=== PATIENT | male | born 1950 | race African-American/Black ===

== ENCOUNTER 2020-07-22 07:44 | Outpatient (REF) | payer MEDICARE, SELFPAY ==
--- NOTE | 2020-07-22 | US_ITS ---
EXAMINATION: US THYROID CLINICAL INFORMATION: MNT. COMPARISON: Ultrasound soft tissue head/neck thyroid dated 03/20/2019. TECHNIQUE: Linear transducer dimas-scale and color Doppler examination with attention to the region of the thyroid. FINDINGS: SIZE: Measurements of the thyroid lobes and nodules are given in sagittal, anteroposterior and transverse dimensions respectively. Right Thyroid Lobe: 4.7 x 1.8 x 1.4 cm, volume 6.0 mL. Previously 4.3 x 2.3 x 1.3 cm, volume 6.8 mL. Parenchyma: The gland echotexture is homogeneous. Thyroid vascularity is normal. Left Thyroid Lobe: 7.2 x 3.0 x 1.6 cm, volume 17.8 mL. Previously 4.0 x 1.9 x 1.6 cm, volume 6.4 mL. Parenchyma: The gland echotexture is homogeneous. Thyroid vascularity is normal. Isthmus: 0.4 cm in maximum AP dimension. Previously 0.4 cm. RIGHT THYROID LOBE: There is 1 nodule seen. 1. Location: Middle. Size: 0.9 x 0.7 x 0.9 cm. Previous: 0.7 x 1.0 x 0.9 cm. Nodule characteristics: Hyperechoic with smooth margins. No internal calcification. Mild intranodular flow.. ISTHMUS: No nodules. LEFT THYROID LOBE: There is 1 nodule seen. 1. Location: Inferior. Size: 4.2 x 3.1 x 2.3 cm. Previous: 3.8 x 3.1 x 1.8 cm. Nodule characteristics: Heterogeneously isoechoic with smooth margins. No internal calcification or intranodular flow.. NODES: No lymphadenopathy is seen in the tissue surrounding the thyroid gland. IMPRESSION: Unchanged subcentimeter right thyroid lobe nodule. The dominant left thyroid lobe nodule which has been previously biopsied is without significant change.
== END 2020-07-22 07:45 | disposition home or self-care (01) ==
LOC: HO.US 07:44
PROVIDERS: Visit Provider Internal Medicine
DX: E04.2 Nontoxic multinodular goiter (principal)
CPT/HCPCS: 76536

== ENCOUNTER 2020-10-28 08:41 | Outpatient (REF) | payer MEDICARE, SELFPAY ==
--- NOTE | 2020-10-28 09:27 | PM.OP ---
Brief Operative Note Date of Service: 10/28/20 Surgeon: Ophelia Vital, DO This is doctor Ophelia Vital. This is an ultrasound-guided fine-needle aspiration report. Patient name: Mark Matthews : 1950 Date of Examination:10/28/2020 Indication: Multinodular Thyroid Porcedure: Procedure was explained to the patient. Alternatives, the risk and benefits were discussed. Written consent was obtained. A time-out was also obtained. After sterile preparation, fine-needle aspiration of a left lower pole 4.2 cm thyroid nodule was performed using direct ultrasound guidance to confirm accurate needle placement. One aspiration was made using a 27 gauge needle. An additional 5 aspirations were made using 25 guage needles. Samples were submitted for cytology. 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 The patient tolerated the procedure well. Aftercare instructions were provided. Impression: Uncomplicated fine needle aspiration biopsy of a left lower pole 4.2 cm thyroid nodule under ultrasound guidance. Estimated blood loss (mL): 0
[2020-10-28] MEDS: Lidocaine HCl 1 % MPF 5 ML VIAL SUBCUT (12:07)
== END 2020-10-28 08:42 | disposition home or self-care (01) ==
LOC: HO.US 08:41
PROVIDERS: Visit Provider Internal Medicine
DX: E04.2 Nontoxic multinodular goiter (principal)
CPT/HCPCS: 10005; 88172; 88173; 88177

== ENCOUNTER → 2020-11-11 10:21 | Outpatient (BNVA) | payer MEDICARE, SELFPAY | PROVIDERS: PCP Internal Medicine; Visit Provider Internal Medicine | DX: Z13.89 Encounter for screening for other disorder (principal) | CPT/HCPCS: Q3014 ==

== ENCOUNTER 2022-07-26 12:00 | Outpatient (REF) | payer MEDICARE, SELFPAY ==
--- NOTE | ~2022-07-26 | US_ITS ---
EXAMINATION: US THYROID CLINICAL INFORMATION: Nontoxic multinodular goiter. COMPARISON: Ultrasound thyroid 07/22/2020 and 03/20/2019. US-guided thyroid biopsy 08/28/2019. TECHNIQUE: Linear and curved transducer grayscale and color Doppler examination with attention to the region of the thyroid. FINDINGS: SIZE: Measurements of the thyroid lobes and nodules are given in sagittal, anteroposterior and transverse dimensions respectively. Right Thyroid Lobe: 4.3 x 1.8 x 1.2 cm, volume 4.9 mL. Previously 4.7 x 1.8 x 1.4 cm, volume 6.0 mL. Parenchyma: The gland echotexture is homogeneous. Thyroid vascularity is normal. Left Thyroid Lobe: 7.0 x 3.2 x 2.1 cm, volume 24.6 mL. Previously 7.2 x 3.0 x 1.6 cm, volume 17.8 mL. Parenchyma: The gland echotexture is heterogeneous. Thyroid vascularity is normal. Isthmus: 0.5 cm in maximum AP dimension. Previously 0.4 cm. Estimated total number of nodules greater than or equal to 1 cm: 2. Cyanide Case Hardener nodules are described as follows: 1. Location: Right mid. Size: 1.1 x 0.7 x 0.8 cm, volume 0.3 mL. Previously: 0.9 x 0.7 x 0.9 cm, volume 0.3 mL. Nodule characteristics: Composition: Solid (2). Echogenicity: Hyperechoic (1). Shape: Not taller than wide (0). Margins: Smooth (0). Echogenic Foci: None (0). ACR TI-RADS total points: 3 ACR TI-RADS category: 3 Significant change in size (>/= 20% in 2 dimensions and minimal increase of 2 mm or 50% or greater increase in volume): Change in features: Change in ACR TI-RADS risk category: 2. Location: Left mid/inferior. Size: 4.3 x 2.2 x 3.4 cm, volume 16.8 mL. Previously: 4.2 x 3.1 x 2.3 cm, volume 15.7 mL. Nodule characteristics: Composition: Solid (2). Echogenicity: Isoechoic (1). Shape: Not taller than wide (0). Margins: Smooth (0). Echogenic Foci: None (0). ACR TI-RADS total points: 3 ACR TI-RADS category: 3 Significant change in size (>/= 20% in 2 dimensions and minimal increase of 2 mm or 50% or greater increase in volume): Change in features: Change in ACR TI-RADS risk category: NODES: No lymphadenopathy is seen in the tissue surrounding the thyroid gland. US/US thyroid IMPRESSION: Enlarged heterogeneous left lobe. Stable bilateral thyroid nodules. ACR TI-RADS RECOMMENDATION REFERENCE: Ultrasound-guided fine-needle aspiration, followup ultrasound, no further follow up. * TR1 (0 point) and TR 2 (2 points): No FNA or follow up. * TR3 (3 points): FNA if more than or equal to 2.5 cm in maximum dimension, followup ultrasound in 1, 3 and 5 years if 1.5 to 2.4 cm in maximum dimension. * TR4 (4-6 points): FNA if more than or equal to 1.5 cm in maximum dimension, followup ultrasound in 1, 2, 3 and 5 years if 1 to 1.4 cm in maximum dimension. * TR5 (more than or equal to 7 points): FNA if more than or equal to 1 cm in maximum dimension, followup ultrasound every year for 5 years if 0.5 to 0.9 cm in maximum dimension. * TR3, TR4 or TR5 nodules that are below the size threshold for followup receive no follow up.
== END 2022-07-26 12:01 | disposition home or self-care (01) ==
LOC: HO.US 12:00
PROVIDERS: Visit Provider Internal Medicine
DX: E04.1 Nontoxic single thyroid nodule (principal)
CPT/HCPCS: 76536

== ENCOUNTER → 2023-04-02 10:37 | Outpatient (BNVA) | payer MEDICARE, SELFPAY | PROVIDERS: PCP Internal Medicine; Visit Provider Internal Medicine | DX: E04.2 Nontoxic multinodular goiter (principal) | CPT/HCPCS: Q3014 ==

== ENCOUNTER 2023-07-31 07:57 | Outpatient (REF) | payer MEDICARE, SELFPAY ==
--- NOTE | ~2023-07-31 | US_ITS ---
EXAMINATION: US THYROID CLINICAL INFORMATION: Nontoxic single thyroid nodule. COMPARISON: Ultrasound soft tissue head/neck thyroid dated 07/26/2022 and 07/22/2020. TECHNIQUE: Linear transducer grayscale and color Doppler examination with attention to the region of the thyroid. FINDINGS: SIZE: Measurements of the thyroid lobes and nodules are given in sagittal, anteroposterior and transverse dimensions respectively. Right Thyroid Lobe: 3.8 x 1.9 x 1.3 cm, volume 4.7 mL. Previously 4.3 x 1.8 x 1.2 cm, volume 4.9 mL. Parenchyma: The gland echotexture is homogeneous. Thyroid vascularity is normal. Left Thyroid Lobe: 6.3 x 3.2 x 2.0 cm, volume 20.7 mL. Previously 7.0 x 3.2 x 2.1 cm, volume 24.6 mL. Parenchyma: The gland echotexture is homogeneous. Thyroid vascularity is normal. Isthmus: 0.4 cm in maximum AP dimension. Previously 0.5 cm. Estimated total number of nodules greater than or equal to 1 cm: 1. Audio Video Mechanic nodules are described as follows: 1. Location: Right mid. Size: 0.8 x 0.6 x 0.7 cm, volume 0.18 mL. Previously: 1.1 x 0.7 x 0.8 cm, volume 0.30 mL. Nodule characteristics: Composition: Solid/almost completely solid (2). Echogenicity: Hyperechoic (1). Shape: Not taller than wide (0). Margins: Cannot be determined (0). Echogenic Foci: None (0). ACR TI-RADS total points: 3 Previous: 3 ACR TI-RADS category: 3 Previous: 3 Significant change in size (>/= 20% in 2 dimensions and minimal increase of 2 mm or 50% or greater increase in volume): No Change in features: No Change in ACR TI-RADS risk category: No 2. Location: Left inferior. Size: 4.3 x 2.7 x 1.9 cm, volume 11.6 mL. Previously: 4.3 x 2.2 x 3.4 cm, volume 16.8 mL. Nodule characteristics: Composition: Solid (2). Echogenicity: Hypoechoic (2). Shape: Taller than wide (3). Margins: Smooth (0). Echogenic Foci: Punctate echogenic foci (3). ACR TI-RADS total points: 10 Previous: 3 ACR TI-RADS category: 5 Previous: 3 Significant change in size (>/= 20% in 2 dimensions and minimal increase of 2 mm or 50% or greater increase in volume): No Change in features: Yes Change in ACR TI-RADS risk category: Yes NODES: No lymphadenopathy is seen in the tissue surrounding the thyroid gland. US/US thyroid IMPRESSION: 1. A 4.3 cm inferior left thyroid lobe nodule meets ACR biopsy criteria. Please correlate with ultrasound biopsy results dated 10/28/2020. 2. There is an asymmetric goiter, left lobe greater than right. ACR TI-RADS RECOMMENDATION REFERENCE: Ultrasound-guided fine-needle aspiration, follow up ultrasound, no further followup. * TR1 (0 point) and TR2 (2 points): No FNA or followup * TR3 (3 points): FNA if more than or equal to 2.5 cm in maximum dimension, follow up ultrasound in 1, 3 and 5 years if 1.5 to 2.4 cm in maximum dimension. * TR4 (4-6 points): FNA if more than or equal to 1.5 cm in maximum dimension, follow up ultrasound in 1, 2, 3 and 5 years if 1 to 1.4 cm in maximum dimension. * TR5 (more than or equal to 7 points): FNA if more than or equal to 1 cm in maximum dimension, follow up ultrasound every year for 5 years if 0.5 to 0.9 cm in maximum dimension. * TR3, TR4 or TR5 nodules that are below the size threshold for follow up receive no followup.
== END 2023-07-31 07:58 | disposition home or self-care (01) ==
LOC: HO.US 07:57
PROVIDERS: PCP Internal Medicine; Visit Provider Internal Medicine
DX: E04.1 Nontoxic single thyroid nodule (principal)
CPT/HCPCS: 76536

== ENCOUNTER 2023-12-14 09:13 | Outpatient (AMB) | payer OTHER, SELFPAY ==
--- NOTE | 2023-12-14 09:28 | MHC.OFFVIS ---
Intake Intake Visit Reasons: LDCT SD Allergies No Known Allergies [No Known Allergies*] Allergy (Verified 04/02/23 10:45) HPI HPI Comments History of Present Illness Details Mark is a pleasant 73 year old male, current 1/4 ppd smoker with a 25 PYH. Patient has been smoking since age 16 for 57 years at 0.25-0.5 ppd. Admits occasional marijuana use. Denies exposure to chemicals or substances like asbestos. Denies second hand smoke exposure. Denies known family history of lung cancer. Denies personal history of cancers. Denies chest CT in last year. Denies recent travel outside the [place]. Denies testing positive for COVID. Admits receiving COVID Vaccine. Denies fever, chills, chest pain, new cough, hemoptysis or unintentional weight loss. Lung Cancer Screening Questionnaire reviewed with patient by provider. Shared Decision Making Completed. Discussed in detail with patient, the risk versus benefit of LDCT screening. Patient in agreement of proceeding with scan. [facility] Medical History HIV (human immunodeficiency virus infection) Multinodular thyroid Surgical History History of laparoscopic cholecystectomy History of right inguinal hernia repair Hx of local excision of skin lesion Family History Father Hypertension Mother No problems noted. Social History Alcohol intake: never Substance Use Type: Marijuana Assessment & Plan Assessment & Plan (1) Nicotine dependence, cigarettes, uncomplicated: Code(s): F17.210 - Nicotine dependence, cigarettes, uncomplicated Plan Shared decision-making visit completed today in office. This patient meets criteria for LDCT for lung cancer screening purposes and is asymptomatic. Offered smoking cessation. Patient has been scheduled for a low dose chest CT for screening purposes at [facility]. We discussed how the results will be obtained depending on CT findings. RADS 1 and RADS 2 will receive a letter with results and will follow up for annual LDCT. Patient informed they will be contacted at later date to schedule upcoming LDCT scan. RADS 3 and RADS 4 will receive a telephone call, or an office visit after reviewing case at our Lung Cancer Conference to determine when the next LDCT will be scheduled or further interventions that may be needed. Discussed importance of screening program and compliance with yearly LDCT scan as scheduled. Risks, benefits, and alternatives were discussed in detail and patient agrees to proceed. Risks discussed include but are not limited to: radiation exposure and possibility of additional intervention for benign disease. Benefits include detection of lung cancer at an early stage. A copy of today's visit and LDCT results will be sent to patient's PCP. Incidental findings on LDCT are PCP's responsibility. If there are incidental findings, our office will ensure that PCP office is aware of these findings. All questions were answered and patient is in agreement of plan. Coding Level of Care Code Lung Cancer Screening G0296 Diagnoses Nicotine dependence, cigarettes, uncomplicated F17.210
== END 2023-12-14 09:29 | disposition home or self-care (01) ==
PROVIDERS: PCP Internal Medicine; Visit Provider Nurse Practitioner Family
DX: F17.210 Nicotine dependence, cigarettes, uncomplicated (principal)
CPT/HCPCS: G0296

== ENCOUNTER 2023-12-14 09:29 | Outpatient (REF) | payer OTHER, SELFPAY ==
--- NOTE | ~2023-12-14 | CT_ITS ---
EXAMINATION: CT CHEST SCREENING CLINICAL INFORMATION: Nicotine dependence. Current smoker at 1 pack per day with 25 pack-year history. COMPARISON: CT chest 03/05/2019. TECHNIQUE: Multidetector volumetric CT imaging of the chest is performed without contrast using low dose technique. Additional 2D coronal and sagittal reformatted images and axial 3D maximum intensity projection (MIP) images are generated on the CT workstation. This CT examination was performed using dose optimization techniques as appropriate, variously including the following: *Automated exposure control *Adjustment of mA and/or kV according to patient size (this includes techniques or standardized protocols for targeted exams where dose is matched to indication/reason for exam; i.e. extremities or head) *Use of iterative reconstruction technique DLP: 52 mGy-cm FINDINGS: LUNGS: Some mild bilateral pleuroparenchymal apical scarring is present. Mild emphysematous changes are present. Small cysts are present in the left lower lobe. Again seen is a band-like ground-glass opacity in the right lower lobe, significantly improved when compared to the 03/05/2019 study. The lungs are otherwise clear with no evidence of inflammation or nodules. MEDIASTINUM: Left lobe of the thyroid is mildly enlarged. CORONARY ARTERY CALCIFICATION: Moderate. PLEURA: There is no pleural effusion. No pleural mass or thickening. AXILLA: No lymphadenopathy. UPPER ABDOMEN: Status post cholecystectomy. Colonic diverticula noted without diverticulitis. OSSEOUS STRUCTURES: Unremarkable. CT/CT lung screening IMPRESSION: Emphysematous changes are seen but no suspicious lung nodule is present to suggest malignancy. ASSESSMENT: Lung-RADS category 1: Negative. RECOMMENDATION: Routine annual low-dose CT screening in 12 months.
== END 2023-12-14 09:30 | disposition home or self-care (01) ==
LOC: HO.CT 09:29
PROVIDERS: PCP Internal Medicine; Visit Provider Nurse Practitioner Family
DX: Z12.2 Encounter for screening for malignant neoplasm of respiratory organs (principal); F17.210 Nicotine dependence, cigarettes, uncomplicated
CPT/HCPCS: 71271; G0296

== ENCOUNTER 2024-04-01 08:29 | Outpatient (REF) | payer OTHER, SELFPAY ==
[2024-04-01 11:43] LABS: MANUAL DIFF FLAG NO
[2024-04-01 11:50] LABS: Basophils Percent Auto 0.3 % (0-2); Eosinophils Absolute Auto 0.1 X10*3/uL (0.0-0.4); Hematocrit 45.1 % (42.0-52.0); Hemoglobin 14.8 g/dl (14.0-18.0); Imm Gran Abs Auto 0.02 X10*3/uL (0.00-0.03); Imm Gran Pct Auto 0.3 % (0.0-0.4); Lymphocytes Absolute Auto 1.6 X10*3/uL (1.2-4.9); Lymphocytes Percent Auto 20.9 % (20-40); Mean Corpuscular HGB Conc 32.8 g/dl (31.0-36.0); Mean Corpuscular Hemoglobin 30.7 pg (27.0-33.0); Mean Corpuscular Volume 93.6 fL (80.0-98.0); Mean Platelet Volume 9.8 fL (9.4-12.4); Monocytes Absolute Auto 0.7 X10*3/uL (0.1-1.2); Monocytes Percent Auto 8.6 % (2-11); Neutrophils Absolute Auto 5.4 x10*3/uL (2.0-8.3); Neutrophils Percent Auto 68.9 % (45-73); Platelet Count 302 X10*3/uL (160-400); Red Blood Count 4.82 X10*6/uL (4.60-5.80); Red Cell Distribution Width 14.6 % (11.0-16.0); White Blood Count 7.8 X10*3/uL (4.8-10.8)
[2024-04-01 12:21] LABS: Alanine Aminotransferase 20 U/L (0-40); Albumin Level 3.9 g/dL (3.5-5.0); Alkaline Phosphatase 67 U/L (39-117); Anion Gap 14 (12-20); Aspartate Amino Transferase 19 U/L (5-37); Bilirubin Total 0.5 mg/dL (0.0-1.0); Blood Urea Nitrogen 13 mg/dL (9-16); Calcium 9.5 mg/dL (8.4-10.2); Carbon Dioxide 27 mmol/L (22-29); Chloride 106 mmol/L (96-108); Cholesterol 132 mg/dL (<200); Estimated Glomerular Filt Rate > 60; Glucose Random 95 mg/dL (60-115); HDL Cholesterol 55 mg/dL (>40); LDL Cholesterol Calculated 65 mg/dL (<100); Potassium 4.1 mmol/L (3.3-5.1); Sodium 143 mmol/L (135-145); Total Protein 7.5 g/dL (6.5-8.0); Triglycerides 61 mg/dL (<150)
[2024-04-01 12:25] LABS: ~HepC Num1 0.15 S/CO (0.00-0.79); ~Hepatitis C Antibody Nonreactive (Nonreactive)
[2024-04-01 13:16] LABS: Reflex LDLD? No
[2024-04-02 13:08] LABS: HIV RNA PCR Qn Copies 214 copies/mL (NOT DETECTED); HIV RNA PCR Qn Log Copies 2.33 (NOT DETECTED)
[2024-04-03 09:23] LABS: RPR Rapid Plasma Reagin NON-REACTIVE (NON-REACTIVE)
[2024-04-04 23:24] LABS: Absolute CD3 Count 1191 cells/uL (840-3060); Absolute CD4 Count 427 cells/uL (490-1740); Absolute CD8 Count 746 cells/uL (180-1170); Absolute Lymphocytes 1621 cells/uL (850-3900); CD4 CD8 Ratio 0.57 (0.86-5.00); Percent CD3 Cells 74 % (57-85); Percent CD4 Cells 26 % (30-61); Percent CD8 Cells 46 % (12-42)
== END 2024-04-01 08:30 | disposition home or self-care (01) ==
LOC: HO.HHCL 08:29
PROVIDERS: Visit Provider Internal Medicine
DX: B20 Human immunodeficiency virus [HIV] disease (principal)
CPT/HCPCS: 36415; 80053; 80061; 85025; 86359; 86360; 86592; 86803; 87536

== ENCOUNTER 2024-05-22 10:07 | Outpatient (REF) | payer OTHER, SELFPAY ==
[2024-05-22 11:24] LABS: MANUAL DIFF FLAG NO
[2024-05-22 11:28] LABS: Basophils Percent Auto 0.1 % (0-2); Eosinophils Absolute Auto 0.1 X10*3/uL (0.0-0.4); Eosinophils Percent Auto 0.9 % (0-4); Hematocrit 42.2 % (42.0-52.0); Hemoglobin 14.3 g/dl (14.0-18.0); Imm Gran Abs Auto 0.04 X10*3/uL (0.00-0.03); Imm Gran Pct Auto 0.5 % (0.0-0.4); Lymphocytes Absolute Auto 1.3 X10*3/uL (1.2-4.9); Lymphocytes Percent Auto 16.3 % (20-40); Mean Corpuscular HGB Conc 33.9 g/dl (31.0-36.0); Mean Corpuscular Hemoglobin 31.6 pg (27.0-33.0); Mean Corpuscular Volume 93.4 fL (80.0-98.0); Mean Platelet Volume 9.5 fL (9.4-12.4); Monocytes Absolute Auto 0.6 X10*3/uL (0.1-1.2); Monocytes Percent Auto 7.7 % (2-11); Neutrophils Absolute Auto 5.9 x10*3/uL (2.0-8.3); Neutrophils Percent Auto 74.5 % (45-73); Platelet Count 267 X10*3/uL (160-400); Red Blood Count 4.52 X10*6/uL (4.60-5.80); Red Cell Distribution Width 14.2 % (11.0-16.0); White Blood Count 7.9 X10*3/uL (4.8-10.8)
[2024-05-22 11:49] LABS: Alanine Aminotransferase 22 U/L (0-40); Albumin Level 3.9 g/dL (3.5-5.0); Alkaline Phosphatase 69 U/L (39-117); Anion Gap 12 (12-20); Aspartate Amino Transferase 20 U/L (5-37); Bilirubin Total 0.5 mg/dL (0.0-1.0); Blood Urea Nitrogen 16 mg/dL (9-16); Calcium 9.5 mg/dL (8.4-10.2); Carbon Dioxide 26 mmol/L (22-29); Chloride 104 mmol/L (96-108); Cholesterol 137 mg/dL (<200); Estimated Glomerular Filt Rate > 60; Glucose Random 107 mg/dL (60-115); HDL Cholesterol 57 mg/dL (>40); LDL Cholesterol Calculated 67 mg/dL (<100); Sodium 138 mmol/L (135-145); Total Protein 7.5 g/dL (6.5-8.0); Triglycerides 68 mg/dL (<150)
[2024-05-22 12:09] LABS: Prostate Specific Antigen Scr 2.85 ng/mL (<0.05-4.0)
[2024-05-22 12:33] LABS: Reflex LDLD? No
[2024-05-23 14:39] LABS: HIV RNA PCR Qn Copies 88 copies/mL (NOT DETECTED); HIV RNA PCR Qn Log Copies 1.94 (NOT DETECTED)
[2024-05-27 18:44] LABS: Absolute CD3 Count 978 cells/uL (840-3060); Absolute CD4 Count 346 cells/uL (490-1740); Absolute CD8 Count 611 cells/uL (180-1170); Absolute Lymphocytes 1290 cells/uL (850-3900); CD4 CD8 Ratio 0.57 (0.86-5.00); Percent CD3 Cells 76 % (57-85); Percent CD4 Cells 27 % (30-61); Percent CD8 Cells 47 % (12-42)
[2024-05-28 11:37] LABS: RPR Rapid Plasma Reagin NON-REACTIVE (NON-REACTIVE)
== END 2024-05-22 10:08 | disposition home or self-care (01) ==
LOC: HO.HHCL 10:07
PROVIDERS: Visit Provider Internal Medicine
DX: Z12.5 Encounter for screening for malignant neoplasm of prostate (principal); Z13.6 Encounter for screening for cardiovascular disorders; B20 Human immunodeficiency virus [HIV] disease; R39.11 Hesitancy of micturition
CPT/HCPCS: 36415; 80053; 80061; 84153; 85025; 86359; 86360; 86592; 87536

== ENCOUNTER 2024-08-21 11:26 | Outpatient (REF) | payer OTHER, SELFPAY | END 2024-08-21 11:27 | disposition home or self-care (01) | LOC: HO.US 11:26 | PROVIDERS: PCP Internal Medicine; Visit Provider Internal Medicine | DX: E04.1 Nontoxic single thyroid nodule (principal) | CPT/HCPCS: 76536 ==

== ENCOUNTER 2024-11-05 15:54 | Outpatient (REF) | payer OTHER, SELFPAY ==
[2024-11-05 17:37] LABS: MANUAL DIFF FLAG NO
[2024-11-05 18:11] LABS: Alanine Aminotransferase 22 U/L (0-40); Albumin Level 3.8 g/dL (3.5-5.0); Alkaline Phosphatase 71 U/L (39-117); Anion Gap 9 (12-20); Aspartate Amino Transferase 23 U/L (5-37); Bilirubin Total 0.3 mg/dL (0.0-1.0); Blood Urea Nitrogen 14 mg/dL (9-16); Calcium 8.4 mg/dL (8.4-10.2); Carbon Dioxide 26 mmol/L (22-29); Chloride 104 mmol/L (96-108); Estimated Glomerular Filt Rate > 60; Glucose Random 87 mg/dL (60-115); Potassium 3.7 mmol/L (3.3-5.1); Sodium 135 mmol/L (135-145); Total Protein 7.5 g/dL (6.5-8.0)
[2024-11-05 18:19] LABS: Basophils Percent Auto 0.1 % (0-2); Eosinophils Absolute Auto 0.1 X10*3/uL (0.0-0.4); Eosinophils Percent Auto 0.9 % (0-4); Hematocrit 40.7 % (42.0-52.0); Hemoglobin 13.6 g/dl (14.0-18.0); Imm Gran Abs Auto 0.03 X10*3/uL (0.00-0.03); Imm Gran Pct Auto 0.3 % (0.0-0.4); Lymphocytes Absolute Auto 2.2 X10*3/uL (1.2-4.9); Mean Corpuscular HGB Conc 33.4 g/dl (31.0-36.0); Mean Corpuscular Hemoglobin 30.7 pg (27.0-33.0); Mean Corpuscular Volume 91.9 fL (80.0-98.0); Mean Platelet Volume 9.6 fL (9.4-12.4); Monocytes Absolute Auto 0.8 X10*3/uL (0.1-1.2); Monocytes Percent Auto 9.3 % (2-11); Neutrophils Absolute Auto 5.7 x10*3/uL (2.0-8.3); Neutrophils Percent Auto 64.4 % (45-73); Platelet Count 304 X10*3/uL (160-400); Red Blood Count 4.43 X10*6/uL (4.60-5.80); Red Cell Distribution Width 14.6 % (11.0-16.0); White Blood Count 8.8 X10*3/uL (4.8-10.8)
[2024-11-06 05:16] LABS: Estimated Average Glucose 114 mg/dL; Hemoglobin A1C 134.5737 umol/L; Hemoglobin A1c % 5.6 % (<6.0); Total Hemoglobin (HGBA1C) 3532.5977 umol/L
[2024-11-06 05:59] LABS: HBS Num1 3.92 mIU/mL (0-7.99); HBsAGNum1 0.35 S/CO (0.00-0.99); Hepatitis B Surface Antigen Negative (Negative); ~Hepatitis B Surface Antibody NONREACTIVE (Nonreactive)
[2024-11-06 06:08] LABS: Hepatitis A Antibody IgG REACTIVE (Nonreactive); ~Hepatitis A Antibody IgG 6.46 S/CO (0.00-0.99)
[2024-11-06 06:38] LABS: HBc Num2 3.83 S/CO; HBc Num3 3.72 S/CO; Hepatitis B Core Antibody Reactive (Nonreactive)
[2024-11-06 18:48] LABS: CT PCR NOT DETECTED (Not Detect.); NG PCR NOT DETECTED (Not Detect.)
[2024-11-06 21:18] LABS: HIV RNA PCR Qn Copies 69 copies/mL (NOT DETECTED); HIV RNA PCR Qn Log Copies 1.84 (NOT DETECTED)
[2024-11-07 08:23] LABS: Hepatitis B Core Antibody IgM NON-REACTIVE (NON-REACTIVE)
[2024-11-08 13:39] LABS: Absolute CD3 Count 1597 cells/uL (840-3060); Absolute CD4 Count 614 cells/uL (490-1740); Absolute CD8 Count 969 cells/uL (180-1170); Absolute Lymphocytes 2287 cells/uL (850-3900); CD4 CD8 Ratio 0.63 (0.86-5.00); Percent CD3 Cells 70 % (57-85); Percent CD4 Cells 27 % (30-61); Percent CD8 Cells 42 % (12-42)
== END 2024-11-05 15:55 | disposition home or self-care (01) ==
LOC: HO.HHCL 15:54
PROVIDERS: Visit Provider Internal Medicine
DX: Z21 Asymptomatic human immunodeficiency virus [HIV] infection status (principal)
CPT/HCPCS: 80053; 83036; 85025; 86359; 86360; 86704; 86705; 86706; 86708; 87340; 87491; 87536; 87591

== ENCOUNTER 2024-11-14 09:29 | Outpatient (REF) | payer OTHER, SELFPAY ==
[2024-11-17 16:38] LABS: TS Negative Control Passed; TS Panel A 2; TS Panel B 0; TS Positive Control Passed; TSpotTB Negative (Negative)
== END 2024-11-14 09:30 | disposition home or self-care (01) ==
LOC: HO.HHCL 09:29
PROVIDERS: Visit Provider Internal Medicine
DX: Z21 Asymptomatic human immunodeficiency virus [HIV] infection status (principal); Z11.1 Encounter for screening for respiratory tuberculosis
CPT/HCPCS: 36415; 86481

== ENCOUNTER 2024-11-18 08:58 | Outpatient (AMB) | payer OTHER, SELFPAY ==
--- NOTE | 2024-11-18 09:10 | MHC.OFFVIS ---
Vital Signs 11/18/24 09:13 Height 5 ft 10.16 in Weight 172 lb 9.951 oz BMI 24.7 BP 104/60 Blood Pressure Location Rt brachial Position Sitting Pulse 85 Pulse Source Pulse Oximeter Pulse Oximetry (%) 98 Oxygen Delivery Method Room Air Intake Visit Reasons: Thyroid nodule Intake Note: Patient present today for Thyroid nodule office visit Yield Clerk Required: No Accompanied by: Self / Same As Patient Allergies No Known Allergies [No Known Allergies*] Allergy (Verified 04/02/23 10:45) Medication List - Last Reconciled 11/18/24 by Veronica Chaves MD ammonium lactate 12% topical BID nkbpgxiyu-vokxffph-fbxwtiw ala 50-200-25 mg 1 tab PO DAILY qkczhonsw-azdedpgs-lljuupo ala 50-200-25 mg (Biktarvy) 1 tab PO DAILY lisinopril 5 mg PO DAILY pravastatin 40 mg PO BEDTIME terazosin 2 mg PO BEDTIME triamcinolone acetonide 0.5% appl topical HPI Comments Details: 74 YO M with PMHx HIV on HAART therapy who is seen in F/U for a multinodular thyroid. HPI He had a CT scan of the chest completed February 2019 for abnormal weight loss, with incidental finding of a thyroid nodule. He subsequently had a thyroid US March 20 2019 which revealed a large 3.8 cm L sided thyroid nodule. He was referred to Endocrinology. He underwent FNA biopsy of this LLP 3.8 cm nodule 08/28/19 with Benign ([place] Category II) Cytology. He had a repeat US 07/22/2020 for yearly surveillance which did reveal growth of 40% in total volume of this nodule, with growth of 20% in 2 separate planes. He then underwent repeat biopsy of this nodule in the LLP measuring 4.2 cm 10/28/2020 with Benign cytology. Subsequently has been followed surveillance thyroid ultrasounds. No recent TSH in the system. Denies any symptoms of hyper or hypothyroidism. Denies any compressive symptoms. Denies any history of head or neck irradiation. Denies any family history of thyroid cancer. Most recent thyroid ultrasound from 08/21/2024 showed stable size of the left lower pole 4.3 cm nodule which is solid, hypoechoic, taller than wide, TR 5 category. This has been biopsied twice before in 2018 and 2020 with benign cytology. A right midpole 1 cm nodule with minor increase in dimensions without significant change is TR 3 category and not meeting criteria for FNA. Physical exam General: sitting comfortably in no acute distress HEENT: normocephalic/atraumatic, EOM intact, moist oral mucosa Neck: supple, palpable 2-3 cm left-sided nodule Cardiac: normal heart sounds Pulm: normal breath sounds B/L, no added breath sounds Abd: not distended, no tenderness Extremities: no edema, no signs of myxedema Neuro: AAO x3, Speech: normal, no facial droop, moving all 4 extremities Laboratory Tests 07/19/18 07:46 TSH 3rd Generation 1.48 US THYROID 08/21/24 CLINICAL INFORMATION: Thyroid nodule. COMPARISON: Ultrasound thyroid 07/31/2023 and 07/26/2022. TECHNIQUE: Linear transducer grayscale and color Doppler examination with attention to the region of the thyroid. FINDINGS: SIZE: Measurements of the thyroid lobes and nodules are given in sagittal, anteroposterior and transverse dimensions respectively. Right Thyroid Lobe: 4.1 x 1.8 x 1.7 cm, volume 5.9 mL. Previously 3.8 x 1.9 x 1.3 cm, volume 4.7 mL. Parenchyma: The gland echotexture is heterogeneous. Thyroid vascularity is normal. Left Thyroid Lobe: 6.3 x 3.0 x 2.1 cm, volume 21.5 mL. Previously 6.3 x 3.2 x 2.0 cm, volume 20.7 mL. Parenchyma: The gland echotexture is heterogeneous. Thyroid vascularity is normal. Isthmus: 0.4 cm in maximum AP dimension. Previously 0.4 cm. Estimated total number of nodules greater than or equal to 1 cm: 2. Master Data Analyst nodules are described as follows: 1. Location: Left lower pole. Size: 4.3 x 2.7 x 1.9 cm, volume 11.42 mL. Previously: 4.3 x 2.7 x 1.9 cm, volume 11.6 mL. Nodule characteristics: Composition: Solid (2). Echogenicity: Hypoechoic (2). Shape: Taller than wide (3). Margins: Ill-defined (0). Echogenic Foci: None (0). ACR TI-RADS total points: 7 Previous: 10 ACR TI-RADS category: 5 Previous: 5 Significant change in size (>/= 20% in 2 dimensions and minimal increase of 2 mm or 50% or greater increase in volume): No Change in features: Yes Change in ACR TI-RADS risk category: No 2. Location: Right mid pole. Size: 1.0 x 0.5 x 0.9 cm, volume 0.25 mL. Previously: 0.8 x 0.6 x 0.7 cm, volume of 0.18 mL. Nodule characteristics: Composition: Solid (2). Echogenicity: Isoechoic (1). Shape: Not taller than wide (0). Margins: Smooth (0). Echogenic Foci: None (0). ACR TI-RADS total points: 3 Previous: 3 ACR TI-RADS category: 3 Previous: 3 Significant change in size (>/= 20% in 2 dimensions and minimal increase of 2 mm or 50% or greater increase in volume): No Change in features: No Change in ACR TI-RADS risk category: No NODES: No lymphadenopathy is seen in the tissue surrounding the thyroid gland. US/US thyroid IMPRESSION: A 4.3 cm LEFT TR 5 thyroid nodule as detailed above meets criteria for biopsy. Correlation with prior biopsy results recommended to determine further management. US THYROID 07/31/23 CLINICAL INFORMATION: Nontoxic single thyroid nodule. COMPARISON: Ultrasound soft tissue head/neck thyroid dated 07/26/2022 and 07/22/2020. TECHNIQUE: Linear transducer grayscale and color Doppler examination with attention to the region of the thyroid. FINDINGS: SIZE: Measurements of the thyroid lobes and nodules are given in sagittal, anteroposterior and transverse dimensions respectively. Right Thyroid Lobe: 3.8 x 1.9 x 1.3 cm, volume 4.7 mL. Previously 4.3 x 1.8 x 1.2 cm, volume 4.9 mL. Parenchyma: The gland echotexture is homogeneous. Thyroid vascularity is normal. Left Thyroid Lobe: 6.3 x 3.2 x 2.0 cm, volume 20.7 mL. Previously 7.0 x 3.2 x 2.1 cm, volume 24.6 mL. Parenchyma: The gland echotexture is homogeneous. Thyroid vascularity is normal. Isthmus: 0.4 cm in maximum AP dimension. Previously 0.5 cm. Estimated total number of nodules greater than or equal to 1 cm: 1. Master Data Analyst nodules are described as follows: 1. Location: Right mid. Size: 0.8 x 0.6 x 0.7 cm, volume 0.18 mL. Previously: 1.1 x 0.7 x 0.8 cm, volume 0.30 mL. Nodule characteristics: Composition: Solid/almost completely solid (2). Echogenicity: Hyperechoic (1). Shape: Not taller than wide (0). Margins: Cannot be determined (0). Echogenic Foci: None (0). ACR TI-RADS total points: 3 Previous: 3 ACR TI-RADS category: 3 Previous: 3 Significant change in size (>/= 20% in 2 dimensions and minimal increase of 2 mm or 50% or greater increase in volume): No Change in features: No Change in ACR TI-RADS risk category: No 2. Location: Left inferior. Size: 4.3 x 2.7 x 1.9 cm, volume 11.6 mL. Previously: 4.3 x 2.2 x 3.4 cm, volume 16.8 mL. Nodule characteristics: Composition: Solid (2). Echogenicity: Hypoechoic (2). Shape: Taller than wide (3). Margins: Smooth (0). Echogenic Foci: Punctate echogenic foci (3). ACR TI-RADS total points: 10 Previous: 3 ACR TI-RADS category: 5 Previous: 3 Significant change in size (>/= 20% in 2 dimensions and minimal increase of 2 mm or 50% or greater increase in volume): No Change in features: Yes Change in ACR TI-RADS risk category: Yes NODES: No lymphadenopathy is seen in the tissue surrounding the thyroid gland. US/US thyroid IMPRESSION: 1. A 4.3 cm inferior left thyroid lobe nodule meets ACR biopsy criteria. Please correlate with ultrasound biopsy results dated 10/28/2020. 2. There is an asymmetric goiter, left lobe greater than right. US THYROID 07/26/22 CLINICAL INFORMATION: Nontoxic multinodular goiter. COMPARISON: Ultrasound thyroid 07/22/2020 and 03/20/2019. US-guided thyroid biopsy 08/28/2019. TECHNIQUE: Linear and curved transducer grayscale and color Doppler examination with attention to the region of the thyroid. FINDINGS: SIZE: Measurements of the thyroid lobes and nodules are given in sagittal, anteroposterior and transverse dimensions respectively. Right Thyroid Lobe: 4.3 x 1.8 x 1.2 cm, volume 4.9 mL. Previously 4.7 x 1.8 x 1.4 cm, volume 6.0 mL. Parenchyma: The gland echotexture is homogeneous. Thyroid vascularity is normal. Left Thyroid Lobe: 7.0 x 3.2 x 2.1 cm, volume 24.6 mL. Previously 7.2 x 3.0 x 1.6 cm, volume 17.8 mL. Parenchyma: The gland echotexture is heterogeneous. Thyroid vascularity is normal. Isthmus: 0.5 cm in maximum AP dimension. Previously 0.4 cm. Estimated total number of nodules greater than or equal to 1 cm: 2. Master Data Analyst nodules are described as follows: 1. Location: Right mid. Size: 1.1 x 0.7 x 0.8 cm, volume 0.3 mL. Previously: 0.9 x 0.7 x 0.9 cm, volume 0.3 mL. Nodule characteristics: Composition: Solid (2). Echogenicity: Hyperechoic (1). Shape: Not taller than wide (0). Margins: Smooth (0). Echogenic Foci: None (0). ACR TI-RADS total points: 3 ACR TI-RADS category: 3 Significant change in size (>/= 20% in 2 dimensions and minimal increase of 2 mm or 50% or greater increase in volume): Change in features: Change in ACR TI-RADS risk category: 2. Location: Left mid/inferior. Size: 4.3 x 2.2 x 3.4 cm, volume 16.8 mL. Previously: 4.2 x 3.1 x 2.3 cm, volume 15.7 mL. Nodule characteristics: Composition: Solid (2). Echogenicity: Isoechoic (1). Shape: Not taller than wide (0). Margins: Smooth (0). Echogenic Foci: None (0). ACR TI-RADS total points: 3 ACR TI-RADS category: 3 Significant change in size (>/= 20% in 2 dimensions and minimal increase of 2 mm or 50% or greater increase in volume): Change in features: Change in ACR TI-RADS risk category: NODES: No lymphadenopathy is seen in the tissue surrounding the thyroid gland. US/US thyroid IMPRESSION: Enlarged heterogeneous left lobe. Stable bilateral thyroid nodules. US THYROID 07/22/20 CLINICAL INFORMATION: MNT. COMPARISON: Ultrasound soft tissue head/neck thyroid dated 03/20/2019. TECHNIQUE: Linear transducer dimas-scale and color Doppler examination with attention to the region of the thyroid. FINDINGS: SIZE: Measurements of the thyroid lobes and nodules are given in sagittal, anteroposterior and transverse dimensions respectively. Right Thyroid Lobe: 4.7 x 1.8 x 1.4 cm, volume 6.0 mL. Previously 4.3 x 2.3 x 1.3 cm, volume 6.8 mL. Parenchyma: The gland echotexture is homogeneous. Thyroid vascularity is normal. Left Thyroid Lobe: 7.2 x 3.0 x 1.6 cm, volume 17.8 mL. Previously 4.0 x 1.9 x 1.6 cm, volume 6.4 mL. Parenchyma: The gland echotexture is homogeneous. Thyroid vascularity is normal. Isthmus: 0.4 cm in maximum AP dimension. Previously 0.4 cm. RIGHT THYROID LOBE: There is 1 nodule seen. 1. Location: Middle. Size: 0.9 x 0.7 x 0.9 cm. Previous: 0.7 x 1.0 x 0.9 cm. Nodule characteristics: Hyperechoic with smooth margins. No internal calcification. Mild intranodular flow.. ISTHMUS: No nodules. LEFT THYROID LOBE: There is 1 nodule seen. 1. Location: Inferior. Size: 4.2 x 3.1 x 2.3 cm. Previous: 3.8 x 3.1 x 1.8 cm. Nodule characteristics: Heterogeneously isoechoic with smooth margins. No internal calcification or intranodular flow.. NODES: No lymphadenopathy is seen in the tissue surrounding the thyroid gland. IMPRESSION: Unchanged subcentimeter right thyroid lobe nodule. The dominant left thyroid lobe nodule which has been previously biopsied is without significant change. [facility] Medical History (Updated 10/27/24 @ 13:00 by Astrid Tyler PA-C) Nicotine dependence, cigarettes, uncomplicated Multinodular thyroid HIV (human immunodeficiency virus infection) Surgical History (Updated 10/27/24 @ 13:01 by Astrid Tyler PA-C) History of laparoscopic cholecystectomy Hx of local excision of skin lesion History of right inguinal hernia repair Family History Father Hypertension Mother No problems noted. Social History (Updated 12/14/23 @ 09:42 by Courtney Leblanc NP) Alcohol intake: never Patient Tobacco Use Status: Current everyday Tobacco user Cigarette Packs Per Day: 0.25 Years Smoked: 40, 0.25-0.5 ppd= 20 pyh Substance Use Type: Marijuana Physical Exam Vital Signs: Last Vital Signs Pulse 85 11/18/24 09:13 BP 104/60 11/18/24 09:13 Pulse Ox 98 11/18/24 09:13 Oxygen Delivery Method Room Air 11/18/24 09:13 BMI result Body Mass Index 24.7 Assessment & Plan Assessment & Plan (1) Multinodular thyroid: Code(s): E04.2 - Nontoxic multinodular goiter Category: Medical Plan: 74-year-old male with no family history of thyroid cancer with no personal history of head or neck radiation who is coming in today for follow up of multinodular goiter. These were diagnosed in 2018, when he was found to have a left lower lobe dominant 3.8 cm nodule which was biopsied in 2018 with benign cytology. Subsequently thyroid ultrasound in 2020 showed increase in the size of the nodule any underwent repeat biopsy of the left lower lobe dominant 4.2 cm nodule in 2020 again with benign cytology. He has been monitored with repeat thyroid ultrasounds. Most recent thyroid ultrasound from 08/21/2024 showed stable size of the left lower pole 4.3 cm nodule which is solid, hypoechoic, taller than wide, TR 5 category. This has been biopsied twice before in 2019 and 2020 with benign cytology. A right midpole 1 cm nodule with minor increase in dimensions without significant change is TR 3 category and not meeting criteria for FNA. He does not have any compressive symptoms. Given this is a TR 5 category nodule, I will plan to repeat another ultrasound this year in August 2025. He can follow up with me after to discuss results. Plan: -ordered thyroid ultrasound for August 2025 -follow up in September 2025 to discuss results -no recent TFTs in the system ordered TSH with reflex free T4 to be done now Plan I spent 30 minutes in reviewing the record, seeing the patient and documenting in the medical record. Orders: Orders Free T4 (Free Thyroxine) Today E04.2 - Nontoxic multinodular goiter US thyroid 08/19/25 E04.2 - Nontoxic multinodular goiter Thyroid Stimulating Hormone Today E04.2 - Nontoxic multinodular goiter Patient Instructions: Do thyroid ultrasound in August 2025 Do blood work today Follow up in September 2025 to discuss results thyroid ultrasound in office with me Coding Level of Care Code Est Pt Level 4 (76728) Diagnoses Multinodular thyroid E04.2 Time Spent (min) 30
[2024-11-18 09:13] VITALS: BP 104/60; PULSE 85; O2SAT 98; BMI 24.7
== END 2024-11-18 09:34 | disposition home or self-care (01) ==
PROVIDERS: PCP Internal Medicine; Visit Provider Student in an Organized Health Care Education/Training Program
DX: E04.2 Nontoxic multinodular goiter (principal)
CPT/HCPCS: 99214

== ENCOUNTER → 2024-11-18 08:58 | Outpatient (BNVA) | payer OTHER, SELFPAY | PROVIDERS: PCP Internal Medicine; Visit Provider Student in an Organized Health Care Education/Training Program | DX: E04.2 Nontoxic multinodular goiter (principal) | CPT/HCPCS: 99212 ==

== ENCOUNTER 2024-12-15 08:58 | Outpatient (REF) | payer OTHER, SELFPAY ==
--- NOTE | ~2024-12-15 | CT_ITS ---
CLINICAL HISTORY: F17.210 - Nicotine dependence, cigarettes, uncomplicated CT lung cancer screening (LDCT) Comparison: None Technique: Axial CT images of the chest using low-dose technique. Referring provider counseled the patient on shared decision-making for LDCT screening. Additional counseling was provided on smoking cessation. Effective radiation dose total: DLP 73 mGycm, CTDIvol 2.1 mGy. Findings: Lung: Summary of nodules including size/character/location/image# of the most suspicious nodules (highest category), degree of emphysema, other relevant pulmonary/pleural findings. Exophytic left posterior thyroid nodule is present as before, measuring roughly 23 mm. Coronary artery calcifications: Mild Limited upper abdomen: Unremarkable Other: None Impression: 1. Coronary artery disease. 2. LungRADS 1: Negative exam. Continue annual screening with low dose Chest CT in 12 months. ##L1# Category 1: Normal; continue annual screening Category 2: Benign appearance or behavior, continue annual screening Category 3: Probably benign, [address] recommended Category 4A: Suspicious, [address] recommended; may consider PET/CT Category 4B: Suspicious, Additional diagnostics and/or tissue sampling recommended Category 4X: Suspicious, Additional diagnostics and/or tissue sampling recommended Category 0: Recalls (incomplete screen due to Incomplete coverage, Noise, Respiratory motion, Expiration, Obscured by acute abnormality) This document has been electronically signed by: Yusuf Castro MD on 12/16/2024 13:44:38
== END 2024-12-15 08:59 | disposition home or self-care (01) ==
LOC: HO.CT 08:58
PROVIDERS: PCP Internal Medicine; Visit Provider Physician Assistant Medical
DX: Z12.2 Encounter for screening for malignant neoplasm of respiratory organs (principal); F17.210 Nicotine dependence, cigarettes, uncomplicated
CPT/HCPCS: 71271

== ENCOUNTER → 2024-12-15 09:00 | Outpatient (BNV) | payer OTHER, SELFPAY | PROVIDERS: PCP Internal Medicine; Visit Provider Radiology Diagnostic Radiology | DX: F17.210 Nicotine dependence, cigarettes, uncomplicated (principal) | CPT/HCPCS: 71271 ==

== ENCOUNTER 2025-06-11 09:37 | Outpatient (REF) | payer OTHER, SELFPAY ==
--- OUTSIDE RECORDS SUMMARY | 2025-06-11 10:26 | XMS_ITS | Encounter Summary ---
Author Organization [facility] Address [address] [place] [address] Phone Care Team Providers Care Water Valve Mechanic Name Role Phone Itz Arreaga MD Primary Care Provide r Encounter Details Date Type Department Care Team (Late st Contact Info) Description 08/30/2021 Ancillary Orders [facility], X-Ray - [address] [address] Elmer Solorio MD [address] [facility] [address] [place] [phone] Pain in left hip Social History Tobacco Use Types Packs/Day Years Used Date Smoking Tobacco: Every Day Cigarettes Smokeless Tobacco: Never Alcohol Use Standard Drinks/Week Comments No 0 (1 standard drink = 0.6 oz pur e alcohol) Sex and Gender Information Value Date Recorded Sex Assigned at Male 10/15/2017 9:38 AM EST Legal Sex Male 8:19 AM EST Gender Identity Male 10/15/2017 9:38 AM EST Sexual Orientation Lesbian or Wagner 10/15/2017 9: 38 AM EST documented as of this encounter Plan of Treatment Not on file documented as of this encounter Results * XR HIP 2 VW LEFT PLUS PELVIS (08/30/2021 12:40 PM EST) Anatomical Region Laterality Modality Hip Left Computed Radiogr aphy 08/30/2021 1:05 PM EST Impressions 08/30/2021 1:09 PM EST Minimal degenerative changes of the left hip joint. Narrative 08/30/2021 1:09 PM EST XR HIP 2 VW LEFT PLUS PELVIS COMPARISON: Radiographs on September 24, 2017 FINDINGS: Pelvis: No displaced fracture. Intact sacroiliac joints and pubic symphysis. Frontal evaluation of the right hip demonstrates normal joint space. Tubular structure and metallic clip projects over the pelvic region. Left hip: No displaced fracture. Normal alignment. Minimal degenerative changes with joint space narrowing and subchondral sclerosis, minimally progressed from 2017. Procedure Note Brady Corcoran MD - 08/30/2021 XR HIP 2 VW LEFT PLUS PELVIS COMPARISON: Radiographs on September 24, 2017 FINDINGS: Pelvis: No displaced fracture. Intact sacroiliac joints and pubicsymphysis. Frontal evaluation of the right hip demonstrates normal jointspace. Tubular structure and metallic clip projects over the pelvicregion. Left hip: No displaced fracture. Normal alignment. Minimal degenerativechanges with joint space narrowing and subchondral sclerosis, minimallyprogressed from 2017. IMPRESSION: Minimal degenerative changes of the left hip joint. 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 It is not the complete legal health record.[facility]
--- OUTSIDE RECORDS SUMMARY | 2025-06-11 10:26 | XMS_ITS | Clinical Summary ---
Author Organization [facility] Address [address] [address] Phone Care Team Providers Care Electrophysiologist Name Role Phone Itz Arreaga MD Primary Care Provide r Allergies No known active allergies Medications pravastatin (PRAVACHOL) 40 MG tablet 2 Active lisinopril (PRINIVIL,ZESTR IL) 5 MG tablet Take 5 mg by mouth daily. 2 Active BIKTARVY 50-200-25 mg per tablet Take 1 tablet by mouth daily. 2 Active diphenhydrAMINE (BENADRYL) 25 mg capsule TAKE 1-2 CAPSULE (S) BY MOUTH AT BEDTIME NEEDED 2 Active triamcinolone acetonide 0.5 % cream APPLY A THIN LAYER TO AFFECTED AREA(S) TWICE DAILY 2 Active ammonium lactate (LAC-HYDRIN) 12 % lotion APPLY TO THE AFFECTED AREA(S) TOPICALLY TWICE DAILY 2 Active Hospital, Clinic, or Other Facility Administered Medication Ordered Dose Route Frequency Start Date End Date Status lidocaine (XYLOCAINE) 1% injection 2 mL 2 mL See Adm Inst See admin instructions 01/05/2023 Active BUPivacaine HCl (MARCAINE) 0.25% injection 2 mL 2 mL See Adm Inst See admin instructions 01/05/2023 Active triamcinolone acetonide (KENALOG-40) 40 mg/mL injection 40 mg 40 mg See Adm Inst See admin instructions 01/05/2023 Active Immunizations Immunization Administration Dates Next Due COVID-19 (Pre-07/30) Moderna Vaccine, mRNA, PF 0 11/30/2020,11/02/2020 COVID-19 (Pre-07/30) Pfizer Vaccine, mRNA, PF ,11/11/2020 Influenza High-Dose Trivalent Preservative Free IM 06/24/2019,07/13/2017 Social History Tobacco Use Types Packs/Day Years Used Date Smoking Tobacco: Every Day Cigarettes Smokeless Tobacco: Never Alcohol Use Standard Drinks/Week Comments No 0 (1 standard drink = 0.6 oz pur e alcohol) Education Answer Date Recorded Are you interested in more education? Not on luke e 02/02/2023 Are you concerned about learning? Not on file 02/02/2023 No 02/02/2023 No 02/02/2023 Digital Access Answer Date Recorded No 03/03/2023 No 03/03/2023 No 03/03/2023 Reliable internet access at home? Not on file 03/03/2023 Device with a working camera? Not on file Sex and Gender Information Value Date Recorded Sex Assigned at Male 10/15/2017 9:38 AM EST Legal Sex Male 8:19 AM EST Gender Identity Male 10/15/2017 9:38 AM EST Sexual Orientation Lesbian or Wagner 10/15/2017 9: 38 AM EST Last Filed Vital Signs Vital Sign Reading Time Taken Comments Blood Pressure 115/77 06/06/2021 7:17 AM EDT Pulse 77 06/06/2021 7:17 AM EDT Temperature 36.1 C (97 F) 06/06/2021 7:17 AM EDT Respiratory Rate 16 06/06/2021 7:17 AM EDT Oxygen Saturation 100% 06/06/2021 7:17 AM EDT Inhaled Oxygen Concentration - - Weight 83.5 kg (184 lb) 06/06/2021 7:17 AM EDT Height 177.8 cm (5' 10 ) 06/06/2021 7:17 AM EDT Body Mass Index 26.4 06/06/2021 7:17 AM EDT Plan of Treatment Health Maintenance Due Date Last Done Comments CREATININE LEVEL 1950 LIPID PANEL 1950 POTASSIUM LEVEL 1950 DEPRESSION SCREENING 1962 SMOKING Hx and SMOKELESS TOBACCO SCREENING 1963 HEPATITIS C SCREENING 1968 COLOGUARD 1995 COLONOSCOPY 1995 COLORECTAL CANCER SCREENING 1995 FIT TEST 1995 FOBT 1995 SIGMOIDOSCOPY 1995 VIRTUAL COLONOSCOPY 1995 ZOSTER VACCINES (2 of 2) 02/19/2023 12/25/2022 INFLUENZA VACCINE (#1) 2025 , 07/15/2021, 06/24/2019, Additional history exists RSV VACCINE (1 - 1-dose 75+ series) 2025 COVID-19 VACCINE (2024- season) 2025 08/03/2022, 01/17/2022, 07/14/2021, Additional history exists Adult Td,Tdap Booster 12/25/2032 12/25/2022, 012 HEPATITIS A VACCINES Aged Out 07/05/2015, 07/28/20 13 No longer eligible based on patient's age to complete this topic PNEUMOCOCCAL VACCINES (50+ years) Completed 07/05/2015, 07/13/2014, 12/30/2008 MENINGOCOCCAL VACCINES (ACWY) Aged Out 08/05/2018, 04/01/2018 No longer eligibl e based on patient's age to complete this topic HIB VACCINES Aged Out No longer eligi ble based on patient's age to complete this topic MENINGOCOCCAL VACCINES (B) Aged Out N o longer eligible based on patient's age to complete this topic Medical Devices Not on file Insurance [facility] REPLACEMENT [place] [id number] MEDICARE REPLACEMENT MEDICARE REPLACEMENT [facility] MEDICARE REPLACEMENT [facility] MEDICARE REPLACEMENT [facility] MEDICARE REPLACEMENT [facility]PL[facility] Care Teams Electrophysiologist Relationship Specialty Start Date End Date Itz Arreaga MD [address] [place] [address] [address] [place] [phone] PCP - General Internal Medicine 09/24/17 Additional Source Comments The information contained in this document represents components of the legal health record. It is not the complete legal health record.[facility]
--- OUTSIDE RECORDS SUMMARY | 2025-06-11 10:26 | XMS_ITS | Encounter Summary ---
Author Organization [facility] Address [address] [facility] [address] [place] [id number] Phone Care Team Providers Care Engine Installer Name Role Phone Itz Arreaga MD Primary Care Provide r Encounter Details Date Type Department Care Team (Latest Contact Info) Description 08/29/2021 Transcribe Orders Virtual Department [address] [place] [address] Elmer Solorio MD [address] [place] [phone] Left thigh pain (Primary Dx) Social History Tobacco Use Types Packs/Day Years [...] documented as of this encounter Results * US Lower Extremity Veins Duplex (Left) (08/30/2021 1:18 PM EST) Anatomical Region Laterality Modality Hip Left, Thigh Left, Knee L eft, Leg Left, Ankle Left, Foot Left Ultrasound 08/30/2021 1:22 PM EST Impressions 08/30/2021 1:22 PM EST No evidence of deep venous thrombosis from the common femoral vein to the popliteal vein in the left lower extremity. Narrative 08/30/2021 1:22 PM EST Ultrasonic examination of the deep venous system of the left leg was performed from the common femoral vein into the upper calf and includes the posterior tibial vein at the ankle, and demonstrates preserved flow, compressibility, and augmentation throughout the visualized deep venous system. Contralateral common femoral vein appears patent and compressible. No Owens's cyst. Procedure Note Brigido Waller MD - 08/30/2021 Ultrasonic examination of the deep venous system of the left leg wasperformed from the common femoral vein into the upper calf and includesthe posterior tibial vein at the ankle, and demonstrates preserved flow,compressibility, and augmentation throughout the visualized deep venoussystem. Contralateral common femoral vein appears patent and compressible.No Owens's cyst. IMPRESSION: No evidence of deep venous thrombosis from the common femoral vein to thepopliteal vein in the left lower extremity. us Elmer Solorio MD US VASCULAR Final Result documented in this encounter Visit Diagnoses Diagnosis Left thigh pain- Primary Pain in soft tissues of limb Left thigh pain Pain in soft tissues of limb documented in this encounter Additional Health Concerns Infection Onset Date Last Indicated Resolved Time MRSA 03/21/2021 06/06/2021 06/06/2023 1:21 AM EDT documented as of this encounter Care Teams Engine Installer Relationship Specialty Start Date End Date Itz Arreaga MD [address] [place] [address] [address] [place] [phone] [email or web address] PCP - General Internal Medicine 09/24/17 documented as of this encounter Additional Source Comments The information contained in this document represents components of the legal health record. It is not the complete legal health record.[facility]
[2025-06-11 11:16] LABS: MANUAL DIFF FLAG NO
[2025-06-11 11:34] LABS: Hematocrit 43.6 % (42.0-52.0); Hemoglobin 14.4 g/dl (14.0-18.0); Imm Gran Abs Auto 0.04 X10*3/uL (0.00-0.03); Imm Gran Pct Auto 0.4 % (0.0-0.4); Lymphocytes Absolute Auto 2.0 X10*3/uL (1.2-4.9); Mean Corpuscular HGB Conc 33.0 g/dl (31.0-36.0); Mean Corpuscular Hemoglobin 30.6 pg (27.0-33.0); Mean Corpuscular Volume 92.8 fL (80.0-98.0); NRBC Abs Auto 0.000 X10*3/uL (0.0-0.012); NRBC Pct Auto 0.0 /100WBC (0.0-0.2); Platelet Count 274 X10*3/uL (160-400); Red Blood Count 4.70 X10*6/uL (4.60-5.80); White Blood Count 9.0 X10*3/uL (4.8-10.8)
[2025-06-11 12:01] LABS: ~HepC Num1 0.19 S/CO (0.00-0.79); ~Hepatitis C Antibody Nonreactive (Nonreactive)
[2025-06-11 12:05] LABS: Alanine Aminotransferase 23 U/L (0-40); Albumin Level 4.4 g/dL (3.5-5.0); Alkaline Phosphatase 76 U/L (39-117); Anion Gap 12 (12-20); Aspartate Amino Transferase 25 U/L (5-37); Blood Urea Nitrogen 15 mg/dL (9-16); Calcium 9.1 mg/dL (8.4-10.2); Carbon Dioxide 26 mmol/L (22-29); Chloride 106 mmol/L (96-108); Cholesterol 144 mg/dL (<200); Estimated Glomerular Filt Rate > 60; HDL Cholesterol 54 mg/dL (>40); Potassium 3.9 mmol/L (3.3-5.1); Sodium 140 mmol/L (135-145); Total Protein 7.9 g/dL (6.5-8.0); Triglycerides 60 mg/dL (<150)
[2025-06-11 12:12] LABS: Cholesterol 142 mg/dL (<200); HDL Cholesterol 55 mg/dL (>40); Thyroid Stimulating Hormone 1.16 uIU/mL (0.32-4.0); Triglycerides 60 mg/dL (<150)
[2025-06-11 12:13] LABS: Free T4 (Free Thyroxine) 1.10 ng/dL (0.71-1.85)
[2025-06-11 13:21] LABS: Reflex LDLD? No
[2025-06-14 08:08] LABS: TS Negative Control Passed; TS Panel A 4; TS Panel B 2; TS Positive Control Passed; TSpotTB Negative (Negative)
[2025-06-14 18:54] LABS: Absolute CD3 Count 1484 cells/uL (840-3060); Absolute CD8 Count 927 cells/uL (180-1170); Percent CD3 Cells 69 % (57-85); Percent CD8 Cells 43 % (12-42)
[2025-06-15 15:29] LABS: HIV RNA PCR Qn Copies 123 copies/mL (NOT DETECTED); HIV RNA PCR Qn Log Copies 2.09 (NOT DETECTED)
== END 2025-06-11 09:38 | disposition home or self-care (01) ==
LOC: HO.HHCL 09:37
PROVIDERS: Student in an Organized Health Care Education/Training Program; PCP Internal Medicine; Referring Provider Internal Medicine; Visit Provider Internal Medicine
DX: Z21 Asymptomatic human immunodeficiency virus [HIV] infection status (principal); E78.2 Mixed hyperlipidemia; E04.2 Nontoxic multinodular goiter; Z11.1 Encounter for screening for respiratory tuberculosis; Z01.84 Encounter for antibody response examination; Z11.59 Encounter for screening for other viral diseases
CPT/HCPCS: 36415; 80053; 80061; 84439; 84443; 85025; 86359; 86360; 86481; 86592; 86803; 87536

== ENCOUNTER 2025-08-25 12:43 | Outpatient (REF) | payer OTHER, SELFPAY ==
--- NOTE | ~2025-08-25 | US_ITS ---
EXAMINATION: US THYROID CLINICAL INFORMATION: Goiter COMPARISON: August 21, 2024. TECHNIQUE: Linear transducer grayscale and color Doppler examination with attention to the region of the thyroid. FINDINGS: SIZE: Measurements of the thyroid lobes and nodules are given in sagittal, anteroposterior and transverse dimensions respectively. Right Thyroid Lobe: 3.1 x 1.9 x 1.7 cm, volume 5.51 mL. Previous: 4.1 x 1.8 x 1.7 cm, volume: 5.9 cc. Parenchyma: The gland echotexture is heterogeneous. Thyroid vascularity is normal. Left Thyroid Lobe: 7.3 x 3.3 x 1.8 cm, volume 22.3 mL. Previous: 6.3 x 3.0 x 2.1 cm, volume: 21.5 cc. Parenchyma: The gland echotexture is heterogeneous. Thyroid vascularity is normal. Isthmus: 0.4 cm in maximum AP dimension Previous: 0.4 cm.. Estimated total number of nodules greater than or equal to 1 cm: 2. Senior Mobile Developer nodules are described as follows: 1. Location: Midportion right lobe. Size: 1.0 x 1.1 x 0.8 cm, volume 0.46 mL. Previous: 1.0 x 0.5 x 0.9 cm, volume: 0.3 cc. Nodule characteristics: Composition: Solid/almost completely solid (2). Echogenicity: Hyperechoic (1). Shape: Taller than wide (3). Margins: Ill-defined (0). Echogenic Foci: None (0). ACR TI-RADS total points: 6 ACR TI-RADS category: 4 2. Location: Lower left lobe. Size: 4.8 x 2.9 x 1.8 cm, volume 12.6 mL. Previous: 4.3 x 2.7 x 1.9 cm, volume: 11.4 cc. Nodule characteristics: Composition: Solid/almost completely solid (2). Echogenicity: Hyperechoic (1). Shape: Taller than wide (3). Margins: Ill-defined (0). Echogenic Foci: None (0). ACR TI-RADS total points: 6 ACR TI-RADS category: 4 NODES: No lymphadenopathy is seen in the tissue surrounding the thyroid gland. US/US thyroid IMPRESSION: ACR TI RADS category 4 ACR TI-RADS RECOMMENDATION REFERENCE: Ultrasound-guided fine-needle aspiration, followup ultrasound, no further follow up. * TR1 (0 point) and TR2 (2 points): No FNA or follow up. * TR3 (3 points): FNA if more than or equal to 2.5 cm in maximum dimension, followup ultrasound in 1, 3 and 5 years if 1.5 to 2.4 cm in maximum dimension. * TR4 (4-6 points): FNA if more than or equal to 1.5 cm in maximum dimension, followup ultrasound in 1, 2, 3 and 5 years if 1 to 1.4 cm in maximum dimension. * TR5 (more than or equal to 7 points): FNA if more than or equal to 1 cm in maximum dimension, followup ultrasound every year for 5 years if 0.5 to 0.9 cm in maximum dimension. * TR3, TR4 or TR5 nodules that are below the size threshold for followup receive no follow up. Electronically signed by: Bonilla Pastrana MD 08/25/2025 02:13 PM [facility]SE[facility] TOL[facility]O
--- OUTSIDE RECORDS SUMMARY | 2025-08-26 04:02 | XMS_ITS | Encounter Summary ---
Author Organization [facility] Address [address] [facility] [address] [place] [address] Phone Care Team Providers Care Agricultural Real Estate Agent Name Role Phone Itz Arreaga MD Primary Care Provide r Encounter Details Date Type Department Care Team (Late st Contact Info) Description 08/30/2021 Ancillary Orders [facility], X-Ray - [address] [id number] Elmer Solorio MD [address] [facility] [address] [place] [phone] [email or web address] Pain in left hip Social History Tobacco [...] documented as of this encounter Care Teams Agricultural Real Estate Agent Relationship Specialty Start Date End Date Itz Arreaga MD [address] [place] [address] [address] [place] [phone] [email or web address] PCP - General Internal Medicine 09/24/17 documented as of this encounter Additional Source Comments The information contained in this document represents components of the legal health record. It is not the complete legal health record.[facility]
--- OUTSIDE RECORDS SUMMARY | 2025-08-26 04:02 | XMS_ITS | Encounter Summary ---
Author Organization [facility] Address [address] [facility] [address] [place] [phone] Phone Care Team Providers Care Lead Painter Name Role Phone Itz Arreaga MD Primary Care Provide r Encounter Details Date Type Department Care Team (Latest Contact Info) Description 08/29/2021 Transcribe Orders Virtual Department [address] [place] [address] Elmer Solorio MD [address] [place] [address] [place] [phone] [email or web address] Left thigh pain (Primary Dx) Social History [...] left lower extremity. us Elmer Solorio MD CV US VASCULAR Final Result documented in this encounter Visit Diagnoses Diagnosis Left thigh pain- Primary Pain in soft tissues of limb Left thigh pain Pain in soft tissues of limb documented in this encounter Additional Health Concerns Infection Onset Date Last Indicated Resolved Time MRSA 03/21/2021 06/06/2021 06/06/2023 1:21 AM EDT documented as of this encounter Care Teams Lead Painter Relationship Specialty Start Date End Date Itz Arreaga MD [address] [place] [address] [address] [place] [phone] [email or web address] PCP - General Internal Medicine 09/24/17 documented as of this encounter Additional Source Comments The information contained in this document represents components of the legal health record. It is not the complete legal health record.[facility]
--- OUTSIDE RECORDS SUMMARY | 2025-08-26 04:02 | XMS_ITS | Clinical Summary ---
Author Organization [facility] Address [address] [address] Phone Care Team Providers Care Alteration Workroom Supervisor Name Role Phone Itz Arreaga MD Primary [...] on patient's age to complete this topic IPV VACCINES Aged Out No longer eligi ble based on patient's age to complete this topic MENINGOCOCCAL VACCINES (B) Aged Out N o longer eligible based on patient's age to complete this topic Medical Devices Not on file Insurance [facility] MEDICARE REPLACEMENT MEDICARE REPLACEMENT [facility] MEDICARE REPLACEMENT MEDICARE REPLACEMENT MEDICARE REPLACEMENT [facility] Care Teams Alteration Workroom Supervisor Relationship Specialty Start Date End Date Itz Arreaga MD [address] [place] [address] [address] [place] [phone] PCP - General Internal Medicine 09/24/17 Additional Source Comments The information contained in this document represents components of the legal health record. It is not the complete legal health record.[facility]
== END 2025-08-25 12:44 | disposition home or self-care (01) ==
LOC: HO.US 12:43
PROVIDERS: PCP Internal Medicine; Visit Provider Student in an Organized Health Care Education/Training Program
DX: E04.2 Nontoxic multinodular goiter (principal)
CPT/HCPCS: 76536

== ENCOUNTER → 2025-08-25 12:44 | Outpatient (BNV) | payer OTHER, SELFPAY | PROVIDERS: PCP Internal Medicine; Visit Provider Radiology Diagnostic Radiology | DX: E04.2 Nontoxic multinodular goiter (principal) | CPT/HCPCS: 76536 ==